=== PATIENT | female | born 1970 | race Caucasian/White ===

== ENCOUNTER 2018-12-02 11:51 | Emergency (ER) | payer OTHER | END 2018-12-02 14:48 | disposition home or self-care (01) | LOC: JERFT 11:51 ==

== ENCOUNTER 2020-12-23 05:06 | Day surgery (SDC) | payer OTHER ==
[2020-12-21 19:08] VITALS: BMI 42.1
[2020-12-23 08:58] VITALS: TEMP 97.8
[2020-12-23] MEDS ORDERED: LIDOCAINE HCL 2% JELLY 10 ML CARTRIDGE ONE (09:46)
[2020-12-23] MEDS ORDERED: ACETAMINOPHEN INJECTION 100 ML IVPB ONE (10:24)
[2020-12-23 12:23] VITALS: BP 126/82; PULSE 72
== END 2020-12-23 12:00 | disposition home or self-care (01) ==
LOC: JASU-ENDO 05:06
PROVIDERS: ATTEND Internal Medicine Gastroenterology
PROC: 06LY3CC Occlusion of Hemorrhoidal Plexus with Extraluminal Device, Percutaneous Approach (ICD-10-PCS; 2020-12-23)
PROC: 0DBP8ZX Excision of Rectum, Via Natural or Artificial Opening Endoscopic, Diagnostic (ICD-10-PCS; principal; 2020-12-23 09:45)
DX: K62.5 Hemorrhage of anus and rectum (principal); K62.1 Rectal polyp; K57.30 Diverticulosis of large intestine without perforation or abscess without bleeding; K64.8 Other hemorrhoids; I10 Essential (primary) hypertension
CPT/HCPCS: 88305-TC